=== PATIENT | male | born 2000 | race Caucasian/White ===

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

== ENCOUNTER 2023-06-05 18:16 | Emergency (ER) | payer BC ==
[2023-06-05 19:06] VITALS: BP 131/84; PULSE 70
== END 2023-06-05 19:16 | disposition home or self-care (01) ==
LOC: VM.ED 18:16
DX: S61.217A Laceration without foreign body of left little finger without damage to nail, initial encounter (principal); W27.8XXA Contact with other nonpowered hand tool, initial encounter
CPT/HCPCS: 99282